=== PATIENT | male | born 1945 | race Caucasian/White ===

== ENCOUNTER 2024-03-19 14:09 | Outpatient (CLI) | payer MEDICARE, BC, SELFPAY ==
--- OUTSIDE RECORDS SUMMARY | 2024-03-19 14:12 | XMS_ITS ---
Author Organization [facility] Address [address] [place] [address] Care Team Providers Care Supervisor Rough End Name Role Phone Unavailable Unavailable Unavailable Surgery Details Not on file Complications Check Surgery Details section. Procedure Estimated Blood Loss Check Surgery Details section. Procedure Findings Check Surgery Details section. Procedure Specimens Taken Check Surgery Details section.
--- OUTSIDE RECORDS SUMMARY | 2024-03-19 14:12 | XMS_ITS | Referral Summary ---
Author Organization [facility] Address [address] [place] [address] Care Team Providers Care Manager Social Name Role Phone Elsewhere, Pcp Primary Care Provider Unavailabl e Source Comments Patient records contain information from all sites at [facility]. For routine questions regarding patient records, call [phone] during business hours, M-F 8:00 AM - 5:00 PM Central Time. Record requests for emergency care only can be directed to [phone] at any time.[facility] Allergies Active Allergy Reactions Criticality Noted Date Comments Tamsulosin Other (see comments) 02/20/2017 lightheaded Tramadol Nausea Only 09/20/2016 Medications Medication Sig Dispensed Refills Start Date End Date Status CHOLECALCIFEROL, VITAMIN D3, (VITAMIN D3 ORAL) Take by mouth. 01/12/2012 Active fluocinonide (for_LIDEX) 0.05 % external solution fluocinonide 0.05% topical solution See Instructions, Apply to the left side of the scalp after your shower for 2 weeks then stop., 60 mL, 0 Refill(s) 11/02/2016 Active miscellaneous medical supply [facility] Arm blood pressure monitor 1 each 08/22/2017 Active compression socks, medium misc Sigvaris thigh-high [place] Microfiber Black 20-30mmHg [id number] x 2 pair [employer] $99.95 x 2 pair = $199.90 Diagnosis: G20 - Parkinson's disease & I95.1 - Orthostatic hypotension 02/27/2017 Active folic acid-vitamin B6,B12 (FOLBIC) 2.5-25-2 mg per tablet Take 1 tablet by mouth daily. 05/13/2015 Active compression socks, medium misc Sigvaris thigh-high [place] Plain Microfiber Black 20-30mmHg [id number] x 2 pair Retail g[employer]rie $99.95 x 2 pair = $199.90 Diagnosis: G20 - Parkinson's disease & I95.1 - Orthostatic hypotension 02/27/2017 Active melatonin 10 mg capsule TAKE 5MG BY MOUTH AT BEDTIME NEEDED 01/19/2021 Active B complex-vitamin (SUPER B-50) capsule TAKE 1 CAPSULE BY MOUTH EVERY DAY FOR NUTRITION 01/11/2021 Active citalopram (CeleXA) 10 mg tablet Take 0.5 tablets by mouth daily. 03/29/2021 Active ketoconazole (NIZORAL) 2 % cream APPLY THIN LAYER EVERY DAY DIRECTED. *FOR EXTERNAL USE ONLY* 2020 Active polyethylene glycol (MIRALAX) 17 gram/dose oral powder as needed. 09/14/2021 Active carbidopa-levodopa (SINEMET) 25-100 mg per tablet Take 1 tablet by mouth 3 (three) times a day. 270 tablet 3 05/11/2022 Active carbidopa-levodopa (SINEMET CR) 50-200 mg per ER tablet 1 tablet in am, 1 tablet at noon, and 1 tablet mid day, and 2 tablets qpm 450 tablet 3 05/11/2022 Active carbidopa-levodopa (PARCOPA) 25-100 mg per disintegrating tablet Dissolve 1 tablet in the mouth 3 (three) times a day as needed (freezing up). 90 tablet 11 05/11/2022 Active traZODone (DESYREL) 50 mg tablet Take 0.5 tablets (25 mg total) by mouth at bedtime. 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/22/2021 06/0 03/2022 Immunizations Name Administration Dates Next Due H1N1 Inj Preservative Free 09/24/2009 HZV (ZOSTAVAX) 03/07/2013 HepB, Unspecified 02/07/1994,04/12/1993 Influenza, Seasonal, Injectable 07/11/20 12,06/24/2009,07/29/2008,2006,08/21/2006 Influenza, Unspecified 06/29/2016,2014,07/15/2014,2012,07/11/2012,08/09/2011,08/02/2010 PCV13 01/22/2015 PPSV23 01/14/2013,01/13/2004 Td (Adult), adsorbed 10/22/2008 Tdap 01/22/2015 influenza high dose (65 year s or older) (PF) 06/01/2020,07/06/2017,06/29/2016,2014 Social History Tobacco Use Types Packs/Day Years Used Date Smoking Tobacco: Former Smokeless Tobacco: Former Humiliation, Afraid, Rape, and Kick questionnair e Answer Date Recorded Within the last year, have y ou been afraid of your partner or ex-partner? No 09/21/2021 Within the last year, have y ou been humiliated or emotionally abused in other ways by your partner or ex-partner? No Within the last year, have y ou been kicked, hit, slapped, or otherwise physically hurt by your partner or ex-partner? No 09/21/2021 Within the last year, have y ou been raped or forced to have any kind of sexual activity by your partner or ex-partner? No 09/21/2021 Social Connection and Isolation Panel [NHANES] A nswer Date Recorded In a typical week, how many times do you talk on the phone with family, friends, or neighbors? Patient declined 09/21/19 22 How often do you get togethe r with friends or relatives? Once a week 09/21/2021 How often do you attend chur or rastafari services? 1 to 4 times per year 09/21/2021 Do you belong to any clubs o r organizations such as buddhism groups, unions, fraternal or athletic groups, or school groups? Yes 09/21/2021 How often do you attend meet ings of the clubs or organizations you belong to? Never 09/21/2021 Are you , , di vorced, , never , or living with a partner? 09/21/2021 AUDIT-C Answer Date Recorded Q1: How often do you have a drink containing alc ohol? Monthly or less 09/21/2021 Q2: How many drinks containi ng alcohol do you have on a typical day when you are drinking? 1 or 2 09/21/2021 Q3: How often do you have si x or more drinks on one occasion? Never 09/21/2021 Overall Financial Resource Strain (CARDIA) Answe r Date Recorded How hard is it for you to pa y for the very basics like food, housing, medical care, and heating? Not hard at all 09/21/2021 [facility] - Occupational Stress Questionnaire Answer Date Recorded Do you feel stress - tense, restless, nervous, or anxious, or unable to sleep at night because your mind is troubled all the time - these days? To some extent 09/21/2021 Exercise Vital Sign Answer Date Recorde d On average, how many days pe r week do you engage in moderate to strenuous exercise (like a brisk walk)? 4 days 09/21/2021 On average, how many minutes do you engage in exercise at this level? 10 min 09/21/2021 Hunger Vital Sign Answer Date Recorded Within the past 12 months, y ou worried that your food would run out before you got the money to buy more. Never true 09/21/19 22 Within the past 12 months, t he food you bought just didn't last and you didn't have money to get more. Never true 09/21/2021 PRAPARE - Transportation Answer Date Re corded In the past 12 months, has l ack of transportation kept you from medical appointments or from getting medications? No 01/2022 In the past 12 months, has l ack of transportation kept you from meetings, work, or from getting things needed for daily living? No 09/21/2021 Housing Stability Vital Sign Answer Ricardo e Recorded In the last 12 months, was t here a time when you were not able to pay the mortgage or rent on time? No 09/21/2021 In the last 12 months, how many places have you lived? 3 09/21/2021 In the last 12 months, was t here a time when you did not have a steady place to sleep or slept in a prison (including now)? No 09/21/2021 Nutrition Answer Date Recorded Nutrition: EVOO Fat Source No 09/21 On average, how many serving s of fruits and vegetables do you eat per day (serving size is equal to 1 cup or approximately the size of a tennis ball)? 0-1 09/21/2021 Dental Answer Date Recorded Dental: Regular Dentist Yes 11/10/19 Employment Answer Date Recorded Employment status Retired 09/21/2021 Education Answer Date Recorded What is the highest level of school you have completed or the highest degree you have received? Associate degree: occupational, technical, or vocational program 10/19/2020 Sex and Gender Information Value Date Recorded Sex Assigned at Not on file Gender Identity Not on file Sexual Orientation Not on file Last Filed Vital Signs Vital Sign Reading Time Taken Comments Blood Pressure 152/86 05/11/2022 9:31 AM CDT Pulse 58 05/11/2022 9:31 AM CDT Temperature 36.3 ??C (97.3 ??F) 04/21/2021 10:46 AM C DT Respiratory Rate 16 10/19/2020 3:35 PM WATER SPONGER Oxygen Saturation 97% 10/19/2020 3:35 PM WATER SPONGER Inhaled Oxygen Concentration - - Weight 73.7 kg (162 lb 7.7 oz) 05/11/2022 9:23 A M CDT Height 180.2 cm (5' 10.94) 11/21/2021 10:07 AM WATER SPONGER Body Mass Index 22.7 11/21/2021 10:07 AM WATER SPONGER Plan of Treatment Not on file Care Teams Manager Social Relationship Specialty Start Date End Date Elsewhere, Pcp PCP - General Family Medicine 04/26/21
--- OUTSIDE RECORDS SUMMARY | 2024-03-19 14:12 | XMS_ITS | Clinical Summary ---
Author Organization [facility] Address [place], [place] [address] Care Team Providers Care Fondant Cooker Name Role Phone Karen Barron MD Primary Care Provider + [phone] Allergies No known active allergies Medications Medication Sig Dispensed Refills Start Date End Date Status carbidopa-levodopa , 25-100 mg, (SINEMET 25-100) 25-100 mg tabletIndications: parkinsonism Take 2 Tablets by mouth four times daily. 6 AM, 9:30 AM, 1:00 PM, 4:30 PM Active carbidopa-levodopa controlled release, 50-200 mg, (SINEMET CR 50-200) 50-200 mg tabletIndications: parkinsonism Take 2 Tablets by mouth at bedtime. Active Compression Socks, Medium misc Sigvaris thigh-high [place] Microfiber Black 20-30mmHg [id number] x 2 pair [employer] $99.95 x 2 pair = $199.90 Diagnosis: G20 - Parkinson's disease & I95.1 - Orthostatic hypotension 2 Each 02/27/2017 Active cholecalciferol (VITAMIN D3) 400 unit tabletIndications: vitamin D deficiency Take 400 units by mouth once daily. 40 units = 1 mcg (400 unit = 10 mcg) Active fluocinonide 0.05 TOPICAL (LIDEX) 0.05 % external solutionIndication s:seborrheic dermatitis Apply topically to affected area(s) once daily if needed (scalp irritation). Apply 10 to 15 drops to left side of scalp daily for 2 weeks, then stop. Use as needed Active ketoconazole 2% shampoo (NIZORAL) 2 % shampooIndications :dandruff Apply topically to affected area(s). Use to shampoo scalp 3 times per week. Lather on damp scalp, leave on for 5min, then rinse with water. Active melatonin 5 mg tab tabletIndications: insomnia Take 10 mg by mouth at bedtime if needed for Sleep. Active midodrine (PROAMATINE) 2.5 mg tabletIndications: symptomatic orthostatic hypotension Take 7.5 mg by mouth two times daily. Active polyethylene glycol (MIRALAX; GLYCOLAX) 17 g per packet packetIndications: constipation Mix 17 g in liquid then take by mouth once daily if needed for Constipation. Active acetaminophen (TYLENOL EXTRA STRGTH) 500 mg tabletIndications: pain Take 1,000 mg by mouth every 6 hours if needed for Pain. Max acetaminophen dose: 4000mg in 24 hrs. Active VITAMIN B COMPLEX ORALIndications:Pr e-Surgery or Post-Surgery Health Examination Take 1 Tablet by mouth once daily. Active clonazePAM (KLONOPIN) 0.5 mg tabletIndications: Insomnia, unspecified type Take 0.5 Tablets (0.25 mg) by mouth at bedtime. 30 Tablet 07/16/2023 Active Active Problems Problem Noted Date Diagnosed Date Sepsis 07/14/2023 Anxiety 07/09/2023 Chronic constipation 07/09/2023 Cognitive impairment 07/09/2023 Hyperlipidemia 07/09/2023 Thrombocytopenia 07/09/2023 Overview: Oct 02, 2022 Entered By: KAREN BARRON Comment: Chronic. Sinemet likely contributing Dental abscess 07/09/2023 Insomnia 05/11/2022 Orthostatic hypotension 06/08/2021 History of falling 10/19/2020 ACP (advance care planning) 12/05/2019 Overview: Health Care Directive completed and scanned. See document dated 11/11/2019. Parkinson's disease 05/25/2015 Primary hypertension 04/16/2014 Resolved Problems Problem Noted Date Diagnosed Date Resolved Date Fever 07/09/2023 07/14/2023 Immunizations Name Administration Dates Next Due Tdap 12/18/2021 Social History Tobacco Use Types Packs/Day Years Used Date Smoking Tobacco: Former Cigarettes Q uit: 09/17/1997 Smokeless Tobacco: Never Tobacco Cessation:Counseling Given: Not Answered Alcohol Use Standard Drinks/Week Comments Not Asked 0 (1 standard drink = 0.6 oz pur e alcohol) Social Connections Answer Date Recorded Frequency of Communication with Friends and Fami ly 0 07/09/2023 Financial Resource Strain Answer Date R ecorded Difficulty of Paying Living Expenses 3 07/09/2023 Difficulty of Paying Living Expenses Not on file 07/09/2023 Food Insecurity Answer Date Recorded Worried About Running Out of Food in the Last Ye ar 1 07/09/2023 Transportation Needs Answer Date Record ed Lack of Transportation (Medical) 1 07/09/2023 Housing Stability Answer Date Recorded Unable to Pay for Housing in the Last Year 1 07/09/2023 Sex and Gender Information Value Date Recorded Sex Assigned at Not on file Gender Identity Not on file Sexual Orientation Not on file Obstetrics History Last Filed Vital Signs Vital Sign Reading Time Taken Comments Blood Pressure 150/82 10/16/2023 2:30 PM PASSENGER FLAGMAN Pulse 68 10/16/2023 2:30 PM PASSENGER FLAGMAN Temperature 36.3 ??C (97.4 ??F) 10/16/2023 2:30 PM CS T Respiratory Rate 16 10/16/2023 2:30 PM PASSENGER FLAGMAN Oxygen Saturation 99% 10/12/2023 12:54 PM PASSENGER FLAGMAN Inhaled Oxygen Concentration - - Weight 72.3 kg (159 lb 4.8 oz) 07/16/2023 8:15 A M CDT Height 177.8 cm (5' 10) 07/09/2023 6:45 PM CDT Body Mass Index 22.86 07/09/2023 6:45 PM CDT Plan of Treatment Health Maintenance Due Date Last Done Comments Depression screening for age 12+ 1959 Hepatitis C screening for age 18-79 1965 Zoster (shingles) series for age 50+ (1 of 2) 10/08/18 98 Pneumococcal series for age 65+ (1 of 1 - PCV) 013 BMI (ht and wt on same day) for age 18+ 01/10/2017 0 01/11/2016 COVID-19 vaccine series ( - season) 3 07/07/2021 Influenza for age 65+ 05/18/2024 Tetanus booster 12/19/2031 12/18/2021 Tdap Completed 12/18/2021 Advance Directives Documents on File Type Date Recorded Patient Methods Analyst Data Processing Expl anation Healthcare Directive 11/11/2019 12:00 AM * Full Code (Latest Code Status on File) Date Activated Date Inactivated Comments 07/09/2023 7:23 PM 07/16/2023 6:00 PM Question Answer Comments Code Status Discussion: Other Care Teams Fondant Cooker Relationship Specialty Start Date End Date Karen Barron MD [address] [place] [address] PCP - General Internal Medicine 07/10/23
--- OUTSIDE RECORDS SUMMARY | 2024-03-19 14:12 | XMS_ITS | Clinical Summary ---
Author Organization [facility] Address [address] [place] [address] Care Team Providers Care Reservoir Caretaker Name Role Phone Elsewhere, Pcp Primary Care Provider Unavailabl e Source Comments Patient records contain information from all sites at [facility]. For routine questions regarding patient records, call [phone] during business hours, M-F 8:00 AM - 5:00 PM Central Time. Record requests for emergency care only can be directed to [phone] at any time.[facility] Allergies Active Allergy Reactions Criticality Noted Date [...] 0 Refill(s) 11/02/2016 Active miscellaneous medical supply [facility] Arm blood pressure monitor 1 each 08/22/2017 Active compression socks, medium misc Sigvaris thigh-high [place] Microfiber Black 20-30mmHg [id number] x 2 pair [employer] $99.95 x 2 pair = $199.90 Diagnosis: G20 - Parkinson's disease & I95.1 - Orthostatic hypotension 02/27/2017 Active folic acid-vitamin B6,B12 (FOLBIC) 2.5-25-2 mg per tablet Take 1 tablet by mouth daily. 05/13/2015 Active compression socks, medium misc Sigvaris thigh-high [place] Microfiber Black 20-30mmHg [id number] x 2 pair [employer] $99.95 x [...] (65 year s or older) (PF) 06/01/2020,07/06/2017,06/29/2016,2014 Family History Medical History Relation Name Comments Diabetes Brother Aj Hyperlipidemia Brother Aj Hypertension Brother Aj Coronary artery disease Father Heart attack Father Heart failure Father Osteoporosis Mother Seizures Mother Hyperlipidemia Sister Yadi Hypertension Sister Yadi Relation Name Status Comments Brother Aj Father Mother Sister Yadi Social History Tobacco Use Types Packs/Day Years [...] week 09/21/2021 How often do you attend [facility] or pentecostal services? 1 to 4 times per year 09/21/2021 Do you belong to any clubs o r organizations such as yarsani groups, unions, fraternal or athletic groups, or [...] and heating? Not hard at all 09/21/2021 [facility] - Occupational Stress [...] place to sleep or slept in a long term (including now)? No 09/21/2021 Nutrition Answer Date [...] DT Respiratory Rate 16 10/19/2020 3:35 PM BIOLOGICAL TECHNICAL OFFICER Oxygen Saturation 97% 10/19/2020 3:35 PM BIOLOGICAL TECHNICAL OFFICER Inhaled Oxygen Concentration - - Weight 73.7 kg (162 lb 7.7 oz) 05/11/2022 9:23 A M CDT Height 180.2 cm (5' 10.94) 11/21/2021 10:07 AM BIOLOGICAL TECHNICAL OFFICER Body Mass Index 22.7 11/21/2021 10:07 AM BIOLOGICAL TECHNICAL OFFICER Plan of Treatment Health Maintenance Due Date Last Done Comments Hepatitis C Screening 1945 Hepatitis B Vaccines (3 of 3 - 19+ 3-dose series) 04/04/1994 02/07/1994, 04/12/1993 Office Visit for Blood Press ure Check / Re-check 08/11/2022 05/11/2022 COVID-19 Vaccine (2022-2 4 season) 2023 04/10/2022, 07/07/2021, 11/25/2020, Additional history exists Depression Screening (Annual PHQ-2) 09/17/2023 Fall Risk Screen (Annual) 09/17/2023 Influenza Vaccine (#1) 2024 3, 08/08/2022, 06/01/2020, Additional history exists DTaP,Tdap,and Td Vaccines (3 - Td or Tdap) 12/19/2031 12/18/2021, 01/22/2015, 10/22/2008, Additional history exists Colonoscopy Discontinued 11/09/2008 Colorectal Cancer Screening Discontinued Pneumococcal vaccine (65+ years) Completed 01/22/2015, 01/14/2013, 01/13/2004 Zoster Vaccines Completed 06/03/2021, 05/2021, 03/07/2013 CT Colonography Discontinued Cologuard Discontinued FIT Discontinued Care Teams Reservoir Caretaker Relationship Specialty Start Date End Date Elsewhere, Pcp PCP - General Family Medicine 04/26/21
--- OUTSIDE RECORDS SUMMARY | 2024-03-19 14:13 | XMS_ITS | Continuity of Care Document ---
Author Name [facility] Organization [facility] Care Team Providers Care Aerospace Manager Name Role Phone [facility] Unavailable Unavailable Problems Combined list of problems from Department of Defense and [facility] Affairs facilities. It does not include entries that were removed or entered in error. 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, 2017 Entered By: CHRISTIANE RIZZO Comment: followed annuallly by ENT at [facility] Orthostatic hypotension Active Condition [facility] Parkinson's disease Active Condition [place] [facility] Prostate nodule Active Condition Aug 27, 2017 Entered By: CHRISTIANE RIZZO Comment: s/p biopsy in 01/03/10 [facility] Scalp psoriasis [facility] [place] [facility] Seborrhea Active Condition [facility] Should[facility] pain [facility] Thrombocytopenia Active Condition Oct 02, 2022 Entered By: DARRICK BARRON Comment: Chronic. Sinemet likely contributing [facility] Urgency of micturition Active Condition [facility] Urinary incontinence Active Condition [facility] Diagnosis: ICD-10-CM L57.0 Actinic keratosis Active Diagnosis [facility] [place] [facility] Diagnosis: ICD-10-CM R32 Unspecified urinary incontinence Active Diagnosis [facility] Diagnosis: ICD-10-CM G20.A1 Parkinson's dis w/o dyskinesia, w/o mention of fluctuations Active Diagnosis [facility] Diagnosis: ICD-10-CM L21.9 Seborrheic dermatitis, unspecified Active Diagnosis [facility] Diagnosis: ICD-10-CM L98.9 Disorder of the skin and subcutaneous tissue, unspecified Active Diagnosis [facility] [place] [facility] Diagnosis: ICD-10-CM G20.A2 Parkinson's disease without dyskinesia, with fluctuations Active Diagnosis [facility] Diagnosis: ICD-10-CM R63.4 Abnormal weight loss Active Diagnosis [facility] Diagnosis: ICD-10-CM E63.9 Nutritional deficiency, unspecified Active Diagnosis [facility] Diagnosis: ICD-10-CM I10 Essential (primary) hypertension Active Diagnosis [facility] Diagnosis: ICD-10-CM L40.9 Psoriasis, unspecified Active Diagnosis [facility] Diagnosis: ICD-10-CM Z71.9 Counseling, unspecified Active Diagnosis [facility] Diagnosis: ICD-10-CM G20 Parkinson's disease Active Diagnosis [facility] Diagnosis: ICD-10-CM R47.1 Dysarthria and anarthria Active Diagnosis [facility] Diagnosis: ICD-10-CM I95.1 Orthostatic hypotension Active Diagnosis [facility] Medications Combined list of outpatient medications from Department of Defense and Veterans Affairs facilities.Medications provided include 1) outpatient medications from the last 15 months, and 2) patient-reported medications. Medication Details Route Status Patient Instructions Prescription Expires Prescription Number Last Dispense Date Ordering Provider Order Date Order Qty Source CARBIDOPA 25MG/LEVODO PA 100MG TAB CARBIDOP A 25MG/LEV ODOPA 100MG TAB Active TAKE 2 TABLETS BY MOUTH FOUR TIMES A DAY FOR PARKINSO N DISEASE SUBSTITU TE FOR THE SA TABLETS DURING THE DAY FOR PARKINSO N DISEASE January 29, 2024 720 January 29, 2025 [id number] January 30, 2024 MICHELE MOELLER [facility] ORAL ACTIVE 01/29/2025 [id number] MALKA MOELLER 2023 720 [facility] CARBIDOPA 25MG/LEVODO PA 100MG TAB CARBIDOP A 25MG/LEV ODOPA 100MG TAB Disconti nued TAKE 1 TABLET BY MOUTH THREE TIMES A DAY FOR PARKINSO N DISEASE FOR PARKINSO N DISEASE Sep 26, 2023 270 Oct 04, 2024 [id number] B Oct 25, 2023 MICHELE MOELLER [facility] ORAL DISCONT INUED 10/04/2024 [id number] MALKA MOELLER 2023 270 [facility] CARBIDOPA 25MG/LEVODO PA 100MG TAB CARBIDOP A 25MG/LEV ODOPA 100MG TAB Disconti nued TAKE 1 TABLET BY MOUTH THREE TIMES A DAY FOR PARKINSO N DISEASE FOR PARKINSO N DISEASE Jul 16, 2023 270 Jul 16, 2024 [id number] A Oct 25, 2023 MICHELE MOELLER [facility] ORAL DISCONT INUED 07/16/2024 [id number] MALKA MOELLER S 2023 270 [facility] CARBIDOPA 25MG/LEVODO PA 100MG TAB CARBIDOP A 25MG/LEV ODOPA 100MG TAB Disconti nued TAKE 1 TABLET BY MOUTH THREE TIMES A DAY FOR PARKINSO N DISEASE FOR PARKIN[place] N DISEASE Nov 09, 2022 270 Nov 10, 2023 [id number] Jul 27, 2023 MICHELE MOELLER [facility] ORAL DISCONT INUED 11/10/2023 [id number] MALKA MOELLER S 2022 270 [facility] CARBIDOPA 25MG/LEVODO PA 100MG TAB,SA CARBIDOP A 25MG/LEV ODOPA 100MG TAB,SA Disconti nued TAKE 2 TABLETS BY MOUTH FOUR TIMES A DAY FOR PARKINSO N DISEASE FOR PARKINSO N DISEASE Oct 18, 2023 720 Oct 18, 2024 [id number] Oct 19, 2023 MICHELE MOELLER [facility] ORAL DISCONT INUED BY PROVIDE R 10/18/2024 [id number] MALKA MOELLER S 2023 720 [facility] CARBIDOPA 25MG/LEVODO PA 100MG TAB,SA CARBIDOP A 25MG/LEV ODOPA 100MG TAB,SA Disconti nued TAKE 1 TABLET BY MOUTH THREE TIMES A DAY AND TAKE 2 TABLETS AT BEDTIME FOR PARKINSO N DISEASE FOR PARKINSO N DISEASE Sep 26, 2023 450 Oct 04, 2024 [id number] Oct 05, 2023 MICHELE MOELLER [facility] ORAL DISCONT INUED 10/04/2024 [id number] MALKA MOELLER S 2023 450 [facility] CARBIDOPA 25MG/LEVODO PA 100MG TAB,SA CARBIDOP A 25MG/LEV ODOPA 100MG TAB,SA Disconti nued TAKE 1 TABLET BY MOUTH THREE TIMES A DAY AND TAKE 2 TABLETS AT BEDTIME FOR PARKINSO N DISEASE FOR PARKINSO N DISEASE Jul 16, 2023 450 Jul 16, 2024 [id number] Jul 17, 2023 SUNNIMICHELE [facility] ORAL DISCONT INUED 07/16/2024 [id number] SUNNIMALKA S 2022 450 [facility] CARBIDOPA 50MG/LEVODO PA 200MG TAB,SA CARBIDOP A 50MG/LEV ODOPA 200MG TAB,SA Active TAKE 2 TABLETS BY MOUTH AT BEDTIME FOR PARKINSO N DISEASE FOR PARKINSO N DISEASE Oct 18, 2023 180 Oct 18, 2024 [id number] Oct 19, 2023 MICHELE MOELLER JACK [facility] ORAL ACTIVE 10/18/2024 [id number] MALKA MOELLER S 2023 180 [facility] CARBIDOPA 50MG/LEVODO PA 200MG TAB,SA CARBIDOP A 50MG/LEV ODOPA 200MG TAB,SA Disconti nued TAKE 1 TABLET BY MOUTH DIRECTED - TAKE ONE TABLET AT 6 AM, NOON, AND 4 PM AND TAKE 2 TABLETS AT 10 PM Nov 09, 2022 450 Nov 10, 2023 [id number] A Jun 04, 2023 MICHELE MOELLER JACK [facility] ORAL DISCONT INUED 11/10/2023 [id number] MALKA MOELLER S 2022 450 [facility] CHOLECALCIF RAUL 10MCG (400UNIT) TAB CHOLECAL CIFEROL 10MCG (400UNIT ) TAB Non-VA TAKE TWO TABLETS BY MOUTH EVERY DAY Mar 01, 2018 [place] Document ed by: AISLINN HATHAWAY Document ed at: [facility] ORAL ACTIVE CARMELLA VÁSQUEZ 2017 [facility] CLONAZEPAM 0.5MG TAB CLONAZEP AM 0.5MG TAB Active TAKE ONE TABLET BY MOUTH AT BEDTIME FOR RBD January 29, 2024 30 Jul 31, 2024 [id number] B Feb 26, 2024 [place] [facility] [facility] [place] [facility] ORAL ACTIVE 07/31/2024 [id number] 4 MALKA MOELLER S 2023 30 [place] [facility] CLONAZEPAM 0.5MG TAB CLONAZEP AM 0.5MG TAB Disconti nued TAKE ONE TABLET BY MOUTH AT BEDTIME FOR RBD Sep 26, 2023 30 Apr 05, 2024 [id number] Dec 24, 2023 [facility] [facility] [place] [facility] ORAL DISCONT INUED 04/05/2024 [id number] MALKA MOELLER S 2023 30 [place] [facility] CLONAZEPAM 0.5MG TAB CLONAZEP AM 0.5MG TAB Disconti nued TAKE ONE TABLET BY MOUTH AT BEDTIME FOR RBD Aug 31, 2023 30 Mar 02, 2024 [id number] Sep 24, 2023 [facility] [facility] [place] [facility] ORAL DISCONT INUED 03/02/2024 [id number] MALKA MOELLER S 2022 30 [place] [facility] CLONAZEPAM 0.5MG TAB CLONAZEP AM 0.5MG TAB Disconti nued TAKE ONE-HALF TABLET BY MOUTH AT BEDTIME FOR RBD Apr 12, 2023 15 Oct 13, 2023 [id number] A Aug 21, 2023 [facility] ORAL DISCONT INUED (EDIT) 10/13/2023 [id number] MALKA MOELLER S 2022 15 [place] [facility] CLONAZEPAM 0.5MG TAB CLONAZEP AM 0.5MG TAB Disconti nued TAKE ONE-HALF TABLET BY MOUTH AT BEDTIME FOR RBD Dec 05, 2022 15 Jun 07, 2023 [id number] Mar 27, 2023 [facility] ORAL DISCONT INUED 06/07/2023 [id number] SUNNIMICHELEE S 2022 15 [place] [facility] ENSURE PLUS LIQUID CHOCOLATE ENSURE PLUS LIQUID CHOCOLAT E Active DRINK 1 CAN BY MOUTH TWICE A DAY FOR NUTRITIO NAL SUPPLEME NT FOR NUTRITIO NAL SUPPLEME NT Feb 21, 2024 48 Feb 21, 2025 [id number] Feb 25, 2024 DARRICK BARRON [facility] ORAL ACTIVE 02/21/2025 [id number] DARRICK BARRON 2023 48 [facility] ENSURE PLUS LIQUID VANILLA ENSURE PLUS LIQUID VANILLA Active DRINK 1 CAN BY MOUTH EVERY DAY FOR NUTRITIO NAL SUPPLEME NT FOR NUTRITIO NAL SUPPLEME NT Sep 21, 2023 24 Sep 21, 2024 [id number] Feb 19, 2024 BEATRICEDARRICK Sarabjit [facility] ORAL ACTIVE 09/21/2024 [id number] ELKE BARRONLY Sarabjit 2023 24 [facility] FLUOCINOLON E ACETONIDE 0.01% SOLN,TOP FLUOCINO LONE ACETONID E 0.01% SOLN,TOP Active APPLY TO SCALP TOPICALL Y TWICE A DAY NEEDED FOR RASH HULL DRAFTER AL USE ONLY FOR RASH January 18, 2024 60 January 18, 2025 [id number] January 21, 2024 ALYSON MCKEON [facility] TOPICA L ACTIVE 01/18/2025 [id number] MICHELE MCKEON 2023 60 [facility] FLUOCINONID E 0.05% SOLN,TOP FLUOCINO NIDE 0.05% SOLN,TOP Active APPLY 10-15 DROPS TOPICALL Y TWICE A DAY NEEDED FOR SEBORRHE IC DERMATIT IS - AT LEAST DAILY NEEDED FOR ITCH FOR SEBORRHE IC DERMATIT IS Mar 04, 2024 60 Mar 05, 2025 [id number] Mar 06, 2024 FLIP PIMENTEL [facility] TOPICA L ACTIVE 03/05/2025 [id number] JAYDEN PIMENTEL 2023 60 [facility] FLUOCINONID E 0.05% SOLN,TOP FLUOCINO NIDE 0.05% SOLN,TOP Disconti nued APPLY 10-15 DROPS TO LEFT SIDE OF SCALP TOPICALL Y EVERY DAY FOR 2 WEEKS THEN STOP Aug 27, 2023 60 Aug 27, 2024 [id number] E Dec 03, 2023 DARRICK BARRON [facility] TOPICA L DISCONT INUED 08/27/2024 [id number] DARRICK BARRON 2022 60 [facility] FLUOCINONID E 0.05% SOLN,TOP FLUOCINO NIDE 0.05% SOLN,TOP Disconti nued APPLY 10-15 DROPS TO LEFT SIDE OF SCALP TOPICALL Y EVERY DAY FOR 2 WEEKS THEN STOP Feb 15, 2023 60 Feb 16, 2024 [id number] D Jul 02, 2023 DARRICK BARRON [facility] TOPICA L DISCONT INUED 02/16/2024 [id number] DARRICK BARRON 2022 60 [facility] FLUOCINONID E 0.05% SOLN,TOP FLUOCINO NIDE 0.05% SOLN,TOP Disconti nued APPLY 10-15 DROPS TO LEFT SIDE OF SCALP TOPICALL Y EVERY DAY FOR 2 WEEKS THEN STOP Sep 03, 2022 60 Sep 04, 2023 [id number] Dec 22, 2022 DARRICK BARRON [facility] TOPICA L DISCONT INUED 09/04/2023 [id number] DARRICK BARRON 2021 60 [facility] KETOCONAZOL E 2% CREAM,TOP KETOCONA ZOLE 2% CREAM,TO P Active APPLY THIN LAYER TOPICALL Y EVERY DAY FOR RASH FOR RASH Sep 11, 2023 60 Sep 11, 2024 [id number] February 04, 2024 DIONICIO FREDERICK [facility] TOPICA L ACTIVE 09/11/2024 [id number] SONAM FREDERICK 2022 60 [facility] KETOCONAZOL E 2% SHAMPOO KETOCONA ZOLE 2% SHAMPOO Active SHAMPOO SCALP TOPICALL Y 3 TIMES WEEKLY FOR RASH *LATHER FOR 5 MINUTES THEN RINSE* FOR RASH Jun 12, 2023 120 Jun 12, 2024 [id number] Dec 14, 2023 DARRICK BARRON [facility] TOPICA L ACTIVE 06/12/2024 [id number] DARRICK BARRON H 2022 120 [place] [facility] MELATONIN CAP/TAB MELATONI N CAP/TAB Non-VA TAKE 5MG BY MOUTH AT BEDTIME NEEDED January 19, 2021 Non-VA Document ed by: NADEEM YUSUF Document ed at: [facility] [place] [facility] ORAL ACTIVE TEJA YUSUF 2020 [place] [facility] MIDODRINE HCL 10MG TAB MIDODRIN E HCL 10MG TAB Disconti nued TAKE ONE TABLET BY MOUTH TWICE A DAY FOR LOW BLOOD PRESSURE IN THE MORNING AND MID-AFTE RNOON *NOTE INCREASE D TABLET STRENGTH * FOR LOW BLOOD PRESSURE Dec 22, 2022 180 Dec 23, 2023 [id number] Dec 26, 2022 MICHELE MOELLER JACK [place] [facility] ORAL DISCONT INUED (EDIT) 12/23/2023 [id number] MALKA MOELLER 2022 180 [facility] [place] [facility] MIDODRINE HCL 2.5MG TAB MIDODRIN E HCL 2.5MG TAB Active TAKE THREE TABLETS BY MOUTH TWICE A DAY IN THE MORNING AND MID-AFTE RNOON FOR LOW BLOOD PRESSURE Sep 26, 2023 540 Oct 04, 2024 [id number] Jan 05, 2024 MICHELE MOELLER [facility] [place] [facility] ORAL [facility]IVE 10/04/2024 [id number] 4 MALKA MOELLER S 2023 540 [facility] MIDODRINE HCL 2.5MG TAB MIDODRIN E HCL 2.5MG TAB Disconti nued TAKE THREE TABLETS BY MOUTH TWICE A DAY IN THE MORNING AND MID-AFTE RNOON FOR LOW BLOOD PRESSURE Jul 16, 2023 540 Jul 16, 2024 [id number] Oct 07, 2023 MICHELE MOELLER [facility] [facility] [facility] ORAL DISCONT INUED 07/16/2024 [id number] 4 MALKA MOELLER S 2022 540 [facility] MIDODRINE HCL 2.5MG TAB MIDODRIN E HCL 2.5MG TAB Disconti nued TAKE THREE TABLETS BY MOUTH TWICE A DAY IN THE MORNING AND MID-AFTE RNOON FOR LOW BLOOD PRESSURE Jan 08, 2023 540 Jan 09, 2024 [id number] Apr 30, 2023 SUNNIMICHELE [place]ANT[place]O [place] [facility] ORAL DISCONT INUED 01/09/2024 [id number] SUNNIMALKA Cunha 2022 540 [place] [facility] POLYETHYLEN E GLYCOL 3350 PWDR,ORAL POLYETHY LEONARDO GLYCOL 3350 PWDR,ORA L Active TAKE 17 GRAMS BY MOUTH EVERY DAY NEEDED FOR CONSTIPA TION NOT RESPONSI VE TO HYDRATIO N AND FIBER *MIX IN 4 TO 8 OUNCES OF LIQUID DIRECTED *USE COVER TO MEASURE POWDER* January 24, 2024 510 January 24, 2025 [id number] B January 25, [address] [facility] ORAL ACTIVE 01/24/2025 [id number] 4 DARRICK BARRON 2023 510 [facility] POLYETHYLEN E GLYCOL 3350 PWDR,ORAL POLYETHY LEONARDO GLYCOL 3350 PWDR,ORA L Disconti nued TAKE 17 GRAMS BY MOUTH EVERY DAY NEEDED FOR CONSTIPA TION NOT RESPONSI VE TO HYDRATIO N AND FIBER *MIX IN 4 TO 8 OUNCES OF LIQUID DIRECTED *USE COVER TO MEASURE POWDER* Nov 10, 2022 510 Nov 11, 2023 [id number] Oct 21, 2023 [facility] ORAL DISCONT INUED 11/11/2023 [id number] 4 DARRICK BARRON 2022 510 [facility] TROSPIUM CL 20MG TAB TROSPIUM CL 20MG TAB Active TAKE ONE TABLET BY MOUTH AT BEDTIME FOR OVERACTI VE BLADDER FOR OVERACTI VE BLADDER Jul 16, 2023 90 Jul 16, 2024 [id number] Jan 09, 2024 SUNNIMICHELE SANTIAGO [facility] ORAL ACTIVE 07/16/2024 [id number] 4 MALKA MOELLER 2022 90 [facility] [place] VITAMIN B COMPLEX CAP VITAMIN B COMPLEX CAP Active TAKE 1 CAPSULE BY MOUTH EVERY DAY FOR NUTRITIO N February 12, 2024 100 February 13, 2025 [id number] B February 14, 2024 SUNNIMICHELE [facility] ORAL ACTIVE 02/13/2025 [id number] 4 MICHELE MOELLERLorene Cunha 2023 100 [facility] VITAMIN B COMPLEX CAP VITAMIN B COMPLEX CAP Disconti nued TAKE 1 CAPSULE BY MOUTH EVERY DAY FOR NUTRITIO N Dec 05, 2022 100 Dec 06, 2023 [id number] A Oct 21, 2023 SUNNIMICHELE Paulson [facility] ORAL DISCONT INUED 12/06/2023 [id number] MICHELE MOELLERLorene Cunha 2022 100 [facility] Immunizations Combined list of available immunizations from the Department of Defense and Veterans Affairs facilities. Immunization Series Date Given Administered By Site Reaction Lot Number CVX Code Drug Senior Marketing Coordinator Status Comments Source INFLUENZA, HIGH-DOSE, QUADRIVALENT 2022 TRAVIS HOWARD LEFT DELTO ID [id number] A 197 complet ed [facility] INFLUENZA VACCINE, QUADRIVALENT, ADJUVANTED 2021 205 complet ed [facility] COVID-19 (PFIZER), MRNA, LNP-S, PF, 30 MCG/0.3 ML DOSE, AUSTEN-SUCROSE (AGES 12+ YEARS) 4 2021 217 complet ed PFR; [id number]; 2 [facility] TDAP 2021 115 complet ed [facility] COVID-19 (PFIZER), MRNA, LNP-S, PF, 30 MCG/0.3 ML DOSE 3 2020 208 complet ed [facility] INFLUENZA, INJECTABLE, QUADRIVALENT, PRESERVATIVE FREE 2020 150 complet ed [facility] ZOSTER RECOMBINANT 2 2020 187 complet ed [facility] ZOSTER RECOMBINANT 1 2020 187 complet ed [facility] COVID-19 (PFIZER), MRNA, LNP-S, PF, 30 MCG/0.3 ML DOSE 2 2020 208 complet ed PFR; [id number]; 1 [facility] COVID-19 (PFIZER), MRNA, LNP-S, PF, 30 MCG/0.3 ML DOSE 1 2020 208 complet ed PFR; [id number]; 1 [facility] INFLUENZA, INJECTABLE, QUADRIVALENT, PRESERVATIVE FREE 2019 150 complet ed [facility] INFLUENZA, HIGH DOSE SEASONAL 2019 135 complet ed [facility] INFLUENZA, SEASONAL, INJECTABLE, PRESERVATIVE FREE 2018 140 complet ed [facility] INFLUENZA, HIGH DOSE SEASONAL 2017 135 complet ed [facility] INFLUENZA, SEASONAL, INJECTABLE 2017 141 complet ed [facility] INFLUENZA, HIGH DOSE SEASONAL 2016 135 complet ed [facility] INFLUENZA, HIGH DOSE SEASONAL 2016 135 complet ed [facility] INFLUENZA, HIGH DOSE SEASONAL 2015 135 complet ed [facility] INFLUENZA, UNSPECIFIED FORMULATION 2014 88 complet ed [facility] INFLUENZA, HIGH DOSE SEASONAL 2014 135 complet ed [facility] PNEUMOCOCCAL CONJUGATE PCV 13 2014 133 complet ed [facility] TDAP 2014 115 complet ed [facility] PNEUMOCOCCAL CONJUGATE PCV 13 2014 133 complet ed [facility] INFLUENZA, UNSPECIFIED FORMULATION 2013 88 complet ed [facility] INFLUENZA, UNSPECIFIED FORMULATION 2012 88 complet ed [facility] ZOSTER LIVE 2012 121 complet ed [facility] PNEUMOCOCCAL POLYSACCHARID E PPV23 2012 33 complet ed [facility] INFLUENZA, SEASONAL, INJECTABLE 2011 141 complet ed [facility] INFLUENZA, UNSPECIFIED FORMULATION 2010 88 complet ed [facility] INFLUENZA, UNSPECIFIED FORMULATION 2009 88 complet ed [facility] NOVEL INFLUENZA-H1N 1-09, PRESERVATIVE- FREE 2009 126 complet ed [facility] INFLUENZA, SEASONAL, INJECTABLE 2008 141 complet ed [facility] TD (ADULT), 2 LF TETANUS TOXOID, PRESERVATIVE FREE, ADSORBED 2008 09 complet ed [facility] INFLUENZA, SEASONAL, INJECTABLE 2007 141 complet ed [facility] INFLUENZA, SEASONAL, INJECTABLE 2006 141 complet ed [facility] INFLUENZA, SEASONAL, INJECTABLE 2005 141 complet ed [facility] INFLUENZA (HISTORICAL) 2005 88 complet ed [facility] PNEUMOCOCCAL POLYSACCHARID E PPV23 2003 33 complet ed [facility] TD(ADULT) UNSPECIFIED FORMULATION 1999 139 complet ed [facility] HEP B, UNSPECIFIED FORMULATION 1993 45 complet ed [facility] HEP B, UNSPECIFIED FORMULATION 1992 45 complet ed [facility] Results Combined list of recent chemistry, hematology and other laboratory results from Department of Defense and Veterans Affairs, ranging from 15 months to all on record, depending upon the facility. Order Name Results Value Reference Range Date Interpretation Specimen Comments Source B 12 COBALAMIN (VITAMIN B12) [MASS/VOLUM E] IN SERUM OR PLASMA 541 pg/mL 213 - 816 01/16 Specimen Type: SERUM No comment entered. Ordering Provider: SA MAIKEL BARRON Report Released Date/Time: Jun 12, 2023 10:43 AM Reporting Lab: [facility] [id number] Performing Lab: [facility] [phone] [facility] BASIC METABOLIC PANEL+MG CREATININE [MASS/VOLUM E] IN SERUM OR PLASMA 0.8 mg/dL 0.7 - 1.2 01/16 Specimen Type: PLASMA No comment entered. Ordering Provider: SA MAIKEL BARRON Report Released Date/Time: Jun 12, 2023 10:43 AM Reporting Lab: [facility] [phone] Performing Lab: [facility] [phone] [facility] BASIC METABOLIC PANEL+MG UREA NITROGEN [MASS/VOLUM E] IN SERUM OR PLASMA 29 mg/dL 8 - 01/16 H Specimen Type: PLASMA No comment entered. Ordering Provider: SA MAIKEL BARRON Report Released Date/Time: Jun 12, 2023 10:43 AM Reporting Lab: [facility] [phone] Performing Lab: [facility] [phone] [place] [facility] BASIC METABOLIC PANEL+MG GLUCOSE [MASS/VOLUM E] IN SERUM OR PLASMA 116 mg/dL 70 - 100 01/16 H Specimen Type: PLASMA No comment entered. Ordering Provider: SA MAIKEL BARRON Report Released Date/Time: Jun 12, 2023 10:43 AM Reporting Lab: [facility] [phone] Performing Lab: [facility] [phone] [place] [facility] BASIC METABOLIC PANEL+MG SODIUM [MOLES/VOLU ME] IN SERUM OR PLASMA 141 mmol/L 136 - 145 01/16 Specimen Type: PLASMA No comment entered. Ordering Provider: SA MAIKEL BARRON Report Released Date/Time: Jun 12, 2023 10:43 AM Reporting Lab: [facility] [id number] Performing Lab: [facility] [id number] [place] [facility]OL[facility] PANEL+MG POTASSIUM [MOLES/VOLU ME] IN SERUM OR PLASMA 4.3 mmol/L 3.5 - 5.1 01/16 Specimen Type: PLASMA No comment entered. Ordering Provider: SA MAIKEL BARRON Report Released Date/Time: Jun 12, 2023 10:43 AM Reporting Lab: [facility] [phone] Performing Lab: [facility] [phone] [place] [facility] METABOLIC PANEL+MG CHLORIDE [MOLES/VOLU ME] IN SERUM OR PLASMA 105 mmol/L 98 - 107 01/16 Specimen Type: PLASMA No comment entered. Ordering Provider: SA MAIKEL BARRON Report Released Date/Time: Jun 12, 2023 10:43 AM Reporting Lab: [facility] [phone] Performing Lab: [facility] [id number] [place] [facility]+MG CARBON DIOXIDE, TOTAL [MOLES/VOLU ME] IN SERUM OR PLASMA 31 mmol/L 22 - 29 01/16 H Specimen Type: PLASMA No comment entered. Ordering Provider: SA MAIKEL BARRON Report Released Date/Time: Jun 12, 2023 10:43 AM Reporting Lab: [facility] [phone] Performing Lab: [facility] [phone] [place] [facility]OL[facility] PANEL+MG CALCIUM [MASS/VOLUM E] IN SERUM OR PLASMA 9.2 mg/dL 8.4 - 10.2 01/16 Specimen Type: PLASMA No comment entered. Ordering Provider: SA MAIKEL BARRON Report Released Date/Time: Jun 12, 2023 10:43 AM Reporting Lab: [facility] [address] Performing Lab: [facility] [address] [place] [facility] BASIC METABOLIC PANEL+MG MAGNESIUM [MASS/VOLUM E] IN SERUM OR PLASMA 2.0 mg/dL 1.6 - 2.6 01/16 Specimen Type: PLASMA No comment entered. Ordering Provider: SA MAIKEL BARRON Report Released Date/Time: Jun 12, 2023 10:43 AM Reporting Lab: [facility] [address] Performing Lab: [facility] [address] [place] [facility] BASIC METABOLIC PANEL+MG ANION GAP IN SERUM OR PLASMA 5 mmol/L 5 - 15 01/16 Specimen Type: PLASMA No comment entered. Ordering Provider: SA MAIKEL BARRON Report Released Date/Time: Jun 12, 2023 10:43 AM Reporting Lab: [facility] [address] Performing Lab: [facility] [address] [place] [facility] BASIC METABOLIC PANEL+MG GLOMERULAR FILTRATION RATE/1.73 SQ M.PREDICTED [VOLUME RATE/AREA] IN SERUM, PLASMA OR BLOOD BY CREATININE- BASED FORMULA (CKD-EPI 2020) >90 60 01/16 Specimen Type: PLASMA No comment entered. Ordering Provider: SA MAIKEL BARRON Report Released Date/Time: Jun 12, 2023 10:43 AM Reporting Lab: [facility] [address] Performing Lab: [facility] [address] [place] [facility] CBC LEUKOCYTES [#/VOLUME] IN BLOOD BY AUTOMATED COUNT 4.75 10*3/u L 4.0 - 11.0 01/16 Specimen Type: BLOOD No comment entered. Ordering Provider: SA MAIKEL BARRON Report Released Date/Time: Jun 12, 2023 10:43 AM Reporting Lab: [facility] [address] Performing Lab: [place] [address] [place] [facility] CBC ERYTHROCYTE S [#/VOLUME] IN BLOOD BY AUTOMATED COUNT 4.12 10*6/u L 4.6 - 6.2 01/16 L Specimen Type: BLOOD No comment entered. Ordering Provider: SA MAIKEL BARRON Report Released Date/Time: Jun 12, 2023 10:43 AM Reporting Lab: [facility] [address] Performing Lab: [facility] [address] [place] [facility] CBC HEMOGLOBIN [MASS/VOLUM E] IN BLOOD 12.5 g/dL 13.5 - 17.9 01/16 L Specimen Type: BLOOD No comment entered. Ordering Provider: SA MAIKEL BARRON Report Released Date/Time: Jun 12, 2023 10:43 AM Reporting Lab: [facility] [address] Performing Lab: [facility] [address] [place] [facility] CBC HEMATOCRIT [VOLUME FRACTION] OF BLOOD BY AUTOMATED COUNT 37.7 41 - 54 01/16 L Specimen Type: BLOOD No comment entered. Ordering Provider: SA MAIKEL BARRON Report Released Date/Time: Jun 12, 2023 10:43 AM Reporting Lab: [facility] [address] Performing Lab: [facility] [address] [place] [facility] CBC MCV [ENTITIC VOLUME] BY AUTOMATED COUNT 91.5 fL 80 - 100 01/16 Specimen Type: BLOOD No comment entered. Ordering Provider: SA MAIKEL BARRON Report Released Date/Time: Jun 12, 2023 10:43 AM Reporting Lab: [facility] [address] Performing Lab: [facility] [address] [place] [facility] CBC MCH [ENTITIC MASS] BY AUTOMATED COUNT 30.3 pg 27 - 33 01/16 Specimen Type: BLOOD No comment entered. Ordering Provider: SA MAIKEL BARRON Report Released Date/Time: Jun 12, 2023 10:43 AM Reporting Lab: [facility] [address] Performing Lab: [facility] [address] [place] [facility] CBC MCHC [MASS/VOLUM E] BY AUTOMATED COUNT 33.2 g/dL 32.0 - 37.5 01/16 Specimen Type: BLOOD No comment entered. Ordering Provider: SA MAIKEL BARRON Report Released Date/Time: Jun 12, 2023 10:43 AM Reporting Lab: [facility] [address] Performing Lab: [facility] [address] [place] [facility] CBC PLATELETS [#/VOLUME] IN BLOOD BY AUTOMATED COUNT 130 10*3/u L 150 - 400 01/16 L Specimen Type: BLOOD No comment entered. Ordering Provider: SA MAIKEL BARRON Report Released Date/Time: Jun 12, 2023 10:43 AM Reporting Lab: [facility] [address] Performing Lab: [facility] [address] [place] [facility] CBC PLATELET MEAN VOLUME [ENTITIC VOLUME] IN BLOOD BY AUTOMATED COUNT 9.1 fL 7.4 - 10.4 01/16 Specimen Type: BLOOD No comment entered. Ordering Provider: SA MAIKEL BARRON Report Released Date/Time: Jun 12, 2023 10:43 AM Reporting Lab: [facility] [address] Performing Lab: [facility] [address] [place] [facility] CBC ERYTHROCYTE DISTRIBUTIO N WIDTH [RATIO] BY AUTOMATED COUNT 13.2 11.5 - 14.5 01/16 Specimen Type: BLOOD No comment entered. Ordering Provider: SA MAIKEL BARRON Report Released Date/Time: Jun 12, 2023 10:43 AM Reporting Lab: [facility] [address] Performing Lab: [facility] [address] [place] [facility] CBC PLATELETS RETICULATED /100 PLATELETS IN BLOOD BY AUTOMATED COUNT 1.7 0 - 10 01/16 Specimen Type: BLOOD No comment entered. Ordering Provider: SA MAIKEL BARRON Report Released Date/Time: Jun 12, 2023 10:43 AM Reporting Lab: [facility] [address] Performing Lab: [facility] [address] [place] [facility] IRON GROUP IRON [MASS/VOLUM E] IN SERUM OR PLASMA 91 ug/dL 65 - 175 01/16 Specimen Type: SERUM No comment entered. Ordering Provider: SA MAIKEL BARRON Report Released Date/Time: Jun 12, 2023 10:43 AM Reporting Lab: [facility] [address] Performing Lab: [facility] [address] [place] [facility] IRON GROUP IRON BINDING CAPACITY [MASS/VOLUM E] IN SERUM OR PLASMA 235 ug/dL 250 - 425 01/16 L Specimen Type: SERUM No comment entered. Ordering Provider: SA MAIKEL BARRON Report Released Date/Time: Jun 12, 2023 10:43 AM Reporting Lab: [facility] [address] Performing Lab: [facility] [address] [place] [facility] IRON GROUP FERRITIN [MASS/VOLUM E] IN SERUM OR PLASMA 353.3 ng/mL 21.8 - 274.7 01/16 H Specimen Type: SERUM No comment entered. Ordering Provider: SA MAIKEL BARRON Report Released Date/Time: Jun 12, 2023 10:43 AM Reporting Lab: [facility] [address] Performing Lab: [facility] [address] [place] [facility] IRON GROUP IRON SATURATION 39 20 - 50 01/16 Specimen Type: SERUM No comment entered. Ordering Provider: SA MAIKEL BARRON Report Released Date/Time: Jun 12, 2023 10:43 AM Reporting Lab: [facility] [address] Performing Lab: [facility] [address] [place] [facility] IRON GROUP TRANSFERRIN [MASS/VOLUM E] IN SERUM OR PLASMA 188 mg/dL 163 - 382 01/16 Specimen Type: SERUM No comment entered. Ordering Provider: SA MAIKEL BARRON Report Released Date/Time: Jun 12, 2023 10:43 AM Reporting Lab: [facility] [address] Performing Lab: [facility] [address] [place] [facility] CBC LEUKOCYTES [#/VOLUME] IN BLOOD BY AUTOMATED COUNT 4.42 10*3/u L 4.0 - 11.0 06/12 Specimen Type: BLOOD No comment entered. Ordering Provider: SA MAIKEL BARRON Report Released Date/Time: Oct 04, 2022 09:41 AM Reporting Lab: [facility] [address] Performing Lab: [facility] [address] [place] [facility] CBC ERYTHROCYTE S [#/VOLUME] IN BLOOD BY AUTOMATED COUNT 4.16 10*6/u L 4.6 - 6.2 06/12 L Specimen Type: BLOOD No comment entered. Ordering Provider: SA MAIKEL BARRON Report Released Date/Time: Oct 04, 2022 09:41 AM Reporting Lab: [facility] [address] Performing Lab: [facility] [address] [place] [facility] CBC HEMOGLOBIN [MASS/VOLUM E] IN BLOOD 12.5 g/dL 13.5 - 17.9 06/12 L Specimen Type: BLOOD No comment entered. Ordering Provider: SA MAIKEL BARRON Report Released Date/Time: Oct 04, 2022 09:41 AM Reporting Lab: [facility] [address] Performing Lab: [facility] [address] [place] [facility] CBC HEMATOCRIT [VOLUME FRACTION] OF BLOOD BY AUTOMATED COUNT 37.9 41 - 54 06/12 L Specimen Type: BLOOD No comment entered. Ordering Provider: SA MAIKEL BARRON Report Released Date/Time: Oct 04, 2022 09:41 AM Reporting Lab: [facility] [address] Performing Lab: [facility] [address] [place] [facility] CBC MCV [ENTITIC VOLUME] BY AUTOMATED COUNT 91.1 fL 80 - 100 06/12 Specimen Type: BLOOD No comment entered. Ordering Provider: SA MAIKEL BARRON Report Released Date/Time: Oct 04, 2022 09:41 AM Reporting Lab: [facility] [address] Performing Lab: [facility] [address] [place] [facility] CBC MCH [ENTITIC MASS] BY AUTOMATED COUNT 30.0 pg 27 - 33 06/12 Specimen Type: BLOOD No comment entered. Ordering Provider: SA MAIKEL BARRON Report Released Date/Time: Oct 04, 2022 09:41 AM Reporting Lab: [facility] [address] Performing Lab: [facility] [address] [place] [facility] CBC MCHC [MASS/VOLUM E] BY AUTOMATED COUNT 33.0 g/dL 32.0 - 37.5 06/12 Specimen Type: BLOOD No comment entered. Ordering Provider: SA MAIKEL BARRON Report Released Date/Time: Oct 04, 2022 09:41 AM Reporting Lab: [facility] [address] Performing Lab: [facility] [address] [place] [facility] CBC PLATELETS [#/VOLUME] IN BLOOD BY AUTOMATED COUNT 120 10*3/u L 150 - 400 06/12 L Specimen Type: BLOOD No comment entered. Ordering Provider: SA MAIKEL BARRON Report Released Date/Time: Oct 04, 2022 09:41 AM Reporting Lab: [facility] [address] Performing Lab: [facility] [address] [place] [facility] CBC PLATELET MEAN VOLUME [ENTITIC VOLUME] IN BLOOD BY AUTOMATED COUNT 9.1 fL 7.4 - 10.4 06/12 Specimen Type: BLOOD No comment entered. Ordering Provider: SA MAIKEL BARRON Report Released Date/Time: Oct 04, 2022 09:41 AM Reporting Lab: [facility] [address] Performing Lab: [facility] [address] [place] [facility] CBC ERYTHROCYTE DISTRIBUTIO N WIDTH [RATIO] BY AUTOMATED COUNT 13.2 11.5 - 14.5 09/26 /2023 Specimen Type: BLOOD No comment entered. Ordering Provider: SA MAIKEL BARRON Report Released Date/Time: Oct 04, 2022 09:41 AM Reporting Lab: [facility] [address] Performing Lab: [facility] [address] [place] [facility] TSH W/REFLEX TO FREE T4 THYROTROPIN [UNITS/VOLU ME] IN SERUM OR PLASMA 0.77 u[IU]/ mL 0.35 - 4.94 06/12 Specimen Type: PLASMA No comment entered. Ordering Provider: SA MAIKEL BARRON Report Released Date/Time: Oct 04, 2022 09:42 AM Reporting Lab: [facility] [address] Performing Lab: [facility] [address] [place] [facility] B 12 COBALAMIN (VITAMIN B12) [MASS/VOLUM E] IN SERUM OR PLASMA 397 pg/mL 213 - 816 10/04 Specimen Type: SERUM No comment entered. Ordering Provider: SA MAIKEL BARRON Report Released Date/Time: Aug 14, 2022 12:40 PM Reporting Lab: [facility] [address] Performing Lab: [facility] [address] [place] [facility] FOLATE FOLATE [MASS/VOLUM E] IN SERUM OR PLASMA >20.0n g/mL 7.0 10/04 Specimen Type: SERUM No comment entered. Ordering Provider: SA MAIKEL BARRON Report Released Date/Time: Aug 14, 2022 12:40 PM Reporting Lab: [facility] [address] Performing Lab: [facility] [address] [place] [facility] IRON GROUP IRON [MASS/VOLUM E] IN SERUM OR PLASMA 103 ug/dL 65 - 175 10/04 Specimen Type: SERUM No comment entered. Ordering Provider: SA MAIKEL BARRON Report Released Date/Time: Aug 14, 2022 12:40 PM Reporting Lab: [facility] [address] Performing Lab: [facility] [address] [place] [facility] IRON GROUP IRON BINDING CAPACITY [MASS/VOLUM E] IN SERUM OR PLASMA 234 ug/dL 250 - 425 10/04 L Specimen Type: SERUM No comment entered. Ordering Provider: SA MAIKEL BARRON Report Released Date/Time: Aug 14, 2022 12:40 PM Reporting Lab: [facility] [address] Performing Lab: [facility] [address] [place] [facility] IRON GROUP FERRITIN [MASS/VOLUM E] IN SERUM OR PLASMA 326.0 ng/mL 21.8 - 274.7 10/04 H Specimen Type: SERUM No comment entered. Ordering Provider: SA MAIKEL BARRON Report Released Date/Time: Aug 14, 2022 12:40 PM Reporting Lab: [facility] [address] Performing Lab: [facility] [address] [place] [facility] IRON GROUP IRON SATURATION 44 20 - 50 10/04 Specimen Type: SERUM No comment entered. Ordering Provider: SA MAIKEL BARRON Report Released Date/Time: Aug 14, 2022 12:40 PM Reporting Lab: [facility] [address] Performing Lab: [facility] [address] [place] [facility] IRON GROUP TRANSFERRIN [MASS/VOLUM E] IN SERUM OR PLASMA 187 mg/dL 163 - 382 10/04 Specimen Type: SERUM No comment entered. Ordering Provider: SA MAIKEL BARRON Report Released Date/Time: Aug 14, 2022 12:40 PM Reporting Lab: [facility] [address] Performing Lab: [facility] [address] [place] [facility] Vital Signs Combined list of inpatient and outpatient Vital Signs from Department of Defense and Veterans Affairs, ranging from 12 months to all on record, depending upon the facility. Vital Sign Value Date Comments Source Encounters Combined list of: 1) Encounters from Department of Veterans Affairs facilities going back up to thelast 18 months. 2) Encounters from the Department of Defense facilities going back up to 280 months. 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
DOROTHEA YUSUF SA 10/24 [place] [facility] [place] [facility] Outpatient Encounter [id number] COLEMAN MEZA E 10/24 [place] [facility] [place] [facility] Outpatient Encounter [id number] 10/25 [place] [facility] [place] [facility] Outpatient Encounter [id number] COLEMAN MEZA E 11/08 [place] [facility] [place] [facility] Outpatient Encounter [id number] PHICAROLINELESL IE A 11/09 [place] [facility] [place] [facility] Outpatient Encounter [id number] PHIDD,LESL IE A 11/24 [place] [facility] [place] [facility] Outpatient Encounter [id number] 11/27 [place] [facility] [place] [facility] Outpatient Encounter [id number] 11/27 [place] [facility] [place] [facility] OFF[place] O/P EST MOD 30-39 MIN [id number] Diagnos is: ICD-10- CM 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
SUNNIAKI 12/05 [place] [facility] [place] [facility] Outpatient Encounter [id number] 12/05 [place] [facility] [place] [facility] Outpatient Encounter [id number] 12/06 [place] [facility] [place] [facility] Outpatient Encounter [id number] PHIDD,LESL IE A 12/20 [place] [facility] [place] [facility] Outpatient Encounter [id number] PHIDD,LESL IE A 01/01 [place] [facility] [place] [facility] Outpatient Encounter [id number] PHIDD,LESL IE A 01/05 [place] [facility] [place] [facility] Outpatient Encounter [id number] PHIDD,LESL IE A 01/05 [place] [facility] ORAL FUNCTION THERAPY [id number] Diagnos is: ICD-10- CM R47.1 Dysarth krauna and anarthr ia
GRACE,CHR ISTINE A 01/11 [place] [facility] Outpatient Encounter [id number] PHIDD,LESL IE A 01/11 [place] [facility] [place] [facility] Outpatient Encounter [id number] 02/13 [place] [facility] [place] [facility] Outpatient Encounter [id number] 03/07 [place] [facility] [place] [facility] Outpatient Encounter [id number] PHIDD,LESL IE A 03/07 [place] [facility] [place] [facility] Outpatient Encounter [id number] PHIDD,LESL IE A 03/12 [place] [facility] [place] [facility] Outpatient Encounter [id number] 03/14 [place] [facility] [place] [facility] Outpatient Encounter [id number] BABITA MADISON 03/27 [place] [facility] [place] [facility] Outpatient Encounter [id number] 04/02 [place] [facility] [place] [facility] OFF[place] O/P EST MOD 30-39 MIN [id number] Diagnos is: ICD-10- CM 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
SUNNIAKI 04/12 [place] [facility] [place] [facility] ORAL FUNCTION THERAPY [id number] Diagnos is: ICD-10- CM R47.1 Dysarth karuna and anarthr ia
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
DOROTHEA YUSUF SA 04/25 [place] [facility] [place] [facility] Outpatient Encounter [id number] BABITA MADISON 04/30 [place] [facility] [place] [facility] Outpatient Encounter [id number] 05/01 [place] [facility] [place] [facility] Outpatient Encounter [id number] 05/08 [place] [facility] [place] [facility] Outpatient Encounter [id number] ARACELI RODRIGUES IE A 05/09 [place] [facility] [place] [facility] Outpatient Encounter [id number] BABITA MADISON 05/22 [place] [facility] [place] [facility] Outpatient Encounter [id number] 05/29 [place] [facility] [place] [facility] Outpatient Encounter [id number] BABITA MADISON 06/04 [place] [facility] [place] [facility] Outpatient Encounter [id number] 06/12 [place] [facility] [place] [facility] OFFICE O/P EST HI 40-54 MIN [id number] Diagnos is: ICD-10- CM 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
CAROLYN HINES 07/17 [place] [facility] [place] [facility] Outpatient Encounter [id number] 08/06 [place] [facility] [place] [facility] Outpatient Encounter [id number] 08/06 [place] [facility] [place] [facility] Outpatient Encounter [id number] 08/06 [place] [facility] [place] [facility] Outpatient Encounter [id number] 08/16 [place] [facility] [place] [facility] HC PRO PHONE CALL 5-10 MIN [id number] Diagnos is: ICD-10- CM 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, w/o mention of fluctua tions<b r/> DONNYCAROLYN ICA K 08/27 [facility] Outpatient Encounter [id number] PHIDD,LESL IE A 08/29 [facility] Outpatient Encounter [id number] BABITA MADISON L 09/11 [facility] OFFICE O/P EST HI 40-54 MIN [id number] Diagnos is: ICD-10- CM 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
Obinna FREDERICK 09/11 [facility] HC PRO PHONE CALL 5-10 MIN 29837-3.61 [phone] Diagnos is: ICD-10- CM I10 Essenti al (primar y) hyperte nsion<b r/> CAROLYN HINES K 09/14 [place] [facility] [place] [facility] Outpatient Encounter [id number] PHIDD,LESL IE A 09/19 [place] [facility] [place] [facility] MEDICAL NUTRITION INDIV IN [phone] Diagnos is: ICD-10- CM R63.4 Abnorma l weight loss
Le QUESADA M 09/21 [place] [facility] [place] [facility] QNHP OL DIG ASSMT&MGMT 5-10 [id number] Diagnos is: ICD-10- CM E63.9 Nutriti onal deficie ncy, unspeci fied
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/o dyskine bonnie, w/o mention of fluctua tions<b r/> AKI MOELLER 09/25 [place] [facility] [place] [facility] Outpatient [facility]counter [id number] 09/26 [place] [facility] [place] [facility] Outpatient [facility]counter [id number] 10/12 [place] [facility] [place] [facility] Outpatient [facility]counter [id number] PHIDD,LESL IE A 10/15 [place] [facility] [place] [facility] Out[place] [facility]counter [id number] 10/16 [place] [facility] [place] [facility] Outpatient Encounter [id number] 10/19 [place] [facility] [place] [facility] Outpatient Encounter [id number] THELMA CARDOZA G 10/22 [place] [facility] [place] [facility] Out[place] Encounter [id number] 10/22 [place] [facility] [place] [facility] Out[place] Encounter [id number] SARITANATALYACOLEMAN Paulson 10/25 [place] [facility] [facility] [place] [facility] [place] Encounter [id number] 10/31 [place] [facility] [place] [facility] Out[place] Encounter [id number] 11/02 [place] [facility] [facility] [place] [facility] Out[place] Encounter [id number] 11/14 [place] [facility] [place] [facility] Out[place] Encounter [id number] 12/06 [place] [facility] [place] [facility] OFFICE O/P EST HI 40 MIN [id number] Diagnos is: ICD-10- CM 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 Outpatient Encounter [id number] 01/09 [facility] Outpatient Encounter [id number] 01/09 [facility] UNLISTED SPEC DERM SVC/PX [id number] Diagnos is: ICD-10- CM L98.9 Disorde r of the skin and subcuta neous tissue, unspeci fied
FELA ARORA 01/16 [facility] OFFICE O/P EST HI 40 MIN [id number] Diagnos is: ICD-10- CM G20.A1 Danitza on's dis w/o dyskine bonnie, w/o mention of fluctua tions<b r/> Alphonse BARRON 01/16 [facility] Outpatient Encounter [id number] Diagnos is: ICD-10- CM L21.9 Seborrh eic dermati tis, unspeci fied
MALKA MCKEON 01/17 [facility] OFFICE O/P EST MOD 30 MIN [id number] Diagnos is: ICD-10- CM G20.A1 Danitza on's dis w/o dyskine bonnie, w/o mention of fluctua tions<b r/> AKI MOELLER 01/28 [facility] Outpatient Encounter [id number] 01/29 [facility] Outpatient Encounter [id number] PHIDD,LESL IE A 01/29 [facility] Outpatient Encounter [id number] PHIDD,LESL IE A 02/03 [place] [facility] [facility] [place] [facility] Outpatient Encounter [id number] CAROLYN HINES KASSIDY K 02/03 [place] [facility] [facility] [place] [facility] Outpatient Encounter [phone] PHIDD,LESL IE A 02/07 [place] [facility] [facility] [place] [facility] Outpatient Encounter [id number] GRICELDA, BABITA L 02/12 [place] [facility] [facility] [place] [facility] MED NUTRITION INDIV SUBSEQ [id number] Diagnos is: ICD-10- CM G20.A1 Danitza on's dis w/o dyskine bonnie, w/o mention of fluctua tions<b r/> Le QUESADA 02/18 [place] [facility] [place] [facility] Outpatient Encounter [id number] PHIDD,LESL IE A 02/24 [place] [facility] [facility] [place] [facility] OFF/OP CNSLTJ NEW/EST LOW 30 [id number] Diagnos is: ICD-10- CM R32 Unspeci fied urinary inconti nence<b r/> EDEL LUEVANO 03/04 [place] [facility] O/P EST MOD 30 MIN [id number] Diagnos is: ICD-10- CM L57.0 Actinic keratos is
SKIBNESS,L ORIE A 03/04 [place] [facility] [facility] [place] [facility] Out[place] Encounter [id number] 03/06 [place] [facility] [facility] [place] [facility] Outpatient Encounter [id number] 03/07 [place] [facility] [facility] [place] [facility] Outpatient Encounter [id number] COLEMAN MEZA 03/10 [facility] Outpatient Encounter [id number] 03/11 [facility] [place] [facility] Outpatient Encounter [id number] CHELY GARCIA L 03/12 [facility] Outpatient Encounter [id number] NELLY RODRIGUESL IE A 03/13 [facility] Outpatient Encounter [id number] COLEMAN MEZA EE E 03/13 [facility] Outpatient Encounter [id number] CAROLYN HINES K 03/18 [facility] Outpatient Encounter [id number] 03/19 [facility] Social History Combined list of available smoking, tobacco, and other social history from Department of Defense and Veterans Affairs facilities. Social History Type Response Date Comment Sour e Tobacco smoking status [facility]IS [facility]CO FORMER USER 01/17/2024 [facility] History of tobacco use [place]-TOBACCO QUIT 1 5 YRS OR MORE 01/17/2024 [facility] History of tobacco use [place]-TO[place]ACCO FORMER USER 10/04/2022 [facility] History of tobacco use [place]-TOBACCO FORMER USER 10/12/2021 [facility] History of tobacco use [place]-TOBACCO QUIT 1 5 YRS OR MORE 12/24/2020 [facility] History of tobacco use [facility]-TOBACCO FORMER USER 03/14/2019 [facility] History of tobacco use [place]-TOBACCO FORMER USER 05/03/2018 [facility] History of tobacco use FORMER TOBACCO US ER 7Y OR GREATER 08/27/2017 [facility] History of tobacco use FORMER TOBACCO US ER 7Y OR GREATER 09/26/2006 [facility] Plan of Care List of future care activities from Department of Veterans Affairs facilities. Additional future care activities may be listed in the Assessment and Plan section. Date/Time Care Activity Care Activity Detail Facili ty 03/26/2024 AMBULATORY - REHAB MEDICINE AMBULATORY - REHAB MEDICINE [facility] 04/08/2024 AMBULATORY - NONE AMBULATORY - NONE [facility] 06/03/2024 AMBULATORY - NEUROLOGY AMBULATORY - NEURO LOGY [facility] 03/19/2024 Laboratory - Physical Therapy Professor ry Order URINALYSIS URINE SP [facility] 03/19/2024 Laboratory - Microbi ology Order CULTURE and SUSCEPTIBILITY URINE SP ~Collect at [facility] please [facility] Advance Directives List of completed, amended, or rescinded Advance Directives on record at Department of [facility] Affairs facilities. An actual copy of the Directive is not included. Date Advance Directive Provider Source 12/04/2019 ADVANCE DIRECTIVE NAVNEET ARREDONDO [facility] 09/26/2006 ADVANCE DIRECTIVE ROSY SALCEDO [facility]
== END 2024-03-19 14:10 | disposition home or self-care (01) ==
LOC: NFLDUCREF 14:10
PROVIDERS: Visit Provider Nurse Practitioner Family
DX: R41.0 Disorientation, unspecified (principal); E86.0 Dehydration
CPT/HCPCS: 87086